=== PATIENT | female | born 1990 | race African-American/Black ===

== ENCOUNTER 2018-10-18 18:04 | Emergency (ER) | payer OTHER ==
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
[2018-10-18 18:13] VITALS: BMI 31.4
[2018-10-18 18:56] VITALS: BP 112/55; PULSE 66; TEMP 97.5
== END 2018-10-18 20:10 | disposition home or self-care (01) ==
LOC: JER 18:04
DX: O26.892 Other specified pregnancy related conditions, second trimester (principal); Z04.1 Encounter for examination and observation following transport accident; Z3A.21 21 weeks gestation of pregnancy
CPT/HCPCS: 76801-TC; 99281-25

== ENCOUNTER 2019-03-03 09:05 | Inpatient (IN) | payer OTHER ==
--- NOTE | 2019-03-03 09:40 | HP ---
Past Medical History - Primary Care Physician PCP:: Lisa Barker - Admission Chief Complaint: labor. srom History of Present Illness: 28 yo EGA 40.4 weeks EDC 02/28/19 with c/o srom and labor no DOLAN, abd pain History Source: Patient Limitations to Obtaining History: No Limitations - Past Medical History ...: 2 ...Para: 0 ...LMP: 05/23/18 ... Weeks Gestation by Dates: 40.3 ...EDC by Dates: 02/28/19 ...EDC by Sono: 02/27/19 - Past Surgical History Past Surgical History: Yes: None Hx Myomectomy: No Hx Transabdominal Cerclage: No - Smoking History Smoking history: Never smoked - Alcohol/Substance Use Hx Alcohol Use: No History of Substance Use: reports: None - Social History Usual Living Arrangement: Yes: With Spouse, With Parent Home Medications - Allergies Allergies/Adverse Reactions: Allergies Allergy/AdvReac Type Severity Reaction Status Date / Time No Known Allergies Allergy Verified 03/03/19 09:30 - Home Medications Home Medications: Ambulatory Orders Pnv No.95/Ferrous Fum/Folic AC [ Vitamin Tablet] 1 each PO DAILY Ibuprofen [Motrin -] 600 mg PO QID #28 tablet 03/03/19 Physical Exam - Maternity Constitutional: Yes: Well Nourished, No Distress - Abdominal Exam/OB Fundal Height: 40 Number of Fetuses: Single Presentation: Vertex Contractions: Yes Regularity: Regular Intensity: Moderate Monitor Mode: External Heart Rate Location: [facility] Category: I - Vaginal Exam/OB Dilatation (cm): 4-5 Effacement (%): 90 Amniotic Membrane Status: Ruptured Amniotic Fluid: Yes: Clear - Physical Exam Musculoskeletal: Yes: WNL Extremities: Yes: WNL Edema: No Psychiatric: Yes: WNL, Alert, Oriented Hemorrhage Risk Assessment - Risk Factors Risk Score: 0 Risk Level: Low Risk Problem List - Problems (1) Labor established Code(s): [id number] - Assessment/Plan IUP at 40 + weeks srom Cat 1 Plan admit to LD Anticipate vaginal deliveryu
[2019-03-03 10:22] VITALS: BMI 32.8
[2019-03-03 10:31] LABS: BASO % 0.2 % (0-2.0)
[2019-03-03 10:33] LABS: EOS % 0.1 % (0-4.5); HEMATOCRIT 38.3 % (32.4-45.2); HEMOGLOBIN 12.8 GM/dL (10.7-15.3); LYMPH % 13.6 % (8-40); MCH 27.3 pg (25.7-33.7); MCHC 33.3 g/dl (32.0-36.0); MEAN CELL VOLUME 81.9 fl (80-96); MEAN PLT VOLUME 8.5 fl (7.5-11.1); MONO % 5.9 % (3.8-10.2); NEUT % 80.2 % (42.8-82.8); PLATELET COUNT 184 K/MM3 (134-434); RBC 4.68 M/mm3 (3.60-5.2); RDW 14.5 % (11.6-15.6); WHITE BLOOD COUNT 8.9 K/mm3 (4.0-10.0)
[2019-03-03] MEDS ORDERED: ELECTROLYTE-148 SOLN 1,000 ML IV SCH (11:00)
[2019-03-03] MEDS ORDERED: PROMETHAZINE HCL 25 MG/1 ML VIAL IVPUSH ONE (11:00)
[2019-03-03] MEDS ORDERED: BUTORPHANOL TARTRATE 1 MG/ML VIAL IVPB ONE (11:00)
[2019-03-03 11:03] LABS: BLOOD UREA NITROGEN 9.2 mg/dL (7-18); CALCIUM 8.7 mg/dL (8.5-10.1); CREATININE 0.6 mg/dL (0.55-1.3); POTASSIUM 3.7 mmol/L (3.5-5.1)
[2019-03-03 11:18] LABS: INR 0.99 (0.83-1.09); PROTHROMBIN TIME (PATIENT) 11.7 SEC (9.7-13.0)
[2019-03-03] MEDS ORDERED: FENTANYL/BUPIVACAINE/NS/PF - PCEA - 50 ML DISP.SYRIN EP ONE (11:18)
[2019-03-03 11:21] LABS: ACTIVATED PTT 27.1 SECONDS (25.2-36.5)
--- NOTE | 2019-03-03 12:36 | PN ---
Ante-Partal Exam - Subjective Vital Signs: Vital Signs Temperature 97.8 F 03/03/19 12:00 Pulse Rate 101 H 03/03/19 12:00 Respiratory Rate 20 03/03/19 12:00 Blood Pressure 116/56 L 03/03/19 12:00 O2 Sat by Pulse Oximetry (%) Bleeding: No Headache: No Visual changes: No Right upper quadrant pain: No - Contractions Contractions: Yes Regularity: Irregular Monitor Mode: External - Exam during Labor Heart Rate: 135 Variability: Moderate Heart Rate Location: [facility] Category: I Monitor Decelerations: None Exam: Vaginal Dilatation (cm): 9 Effacement (%): 100 Amniotic Membrane Status: Ruptured Amniotic Fluid: Clear Presentation: Vertex Station: +1 - Intrapartum Hemorrhage Risk Risk Score: 0 Risk Level: Low Risk - Assessment/Plan Assessment/Plan: Active labor iup at 40 + week Plan Anticipate vaginal delivery
[2019-03-03] MEDS ORDERED: LIDOCAINE HCL 1% PRESERVATIVE FREE - 30ML VIAL ONE (12:41)
[2019-03-03] MEDS ORDERED: OXYTOCIN 20 UNITS in 0.9% NS 20 UNIT/1,000 ML INFUS.BAG IV ONE (12:41)
[2019-03-03] MEDS ORDERED: IBUPROFEN 600 MG TABLET (FP) PO PRN (13:17)
[2019-03-03] MEDS ORDERED: ACETAMINOPHEN 325 MG TABLET (FP) PO PRN (13:17)
[2019-03-03] MEDS ORDERED: METHYLERGONOVINE MALEATE 0.2 MG/1 ML AMP IM PRN (13:17)
[2019-03-03] MEDS ORDERED: BENZOCAINE 28 GM HEMORRHOIDAL OINTMENT PR PRN (13:17)
[2019-03-03] MEDS ORDERED: BENZOCAINE 20% 57 GM BOTTLE TP PRN (13:17)
[2019-03-03] MEDS ORDERED: BISACODYL 10 MG SUPP.RECT PR PRN (13:17)
[2019-03-03] MEDS ORDERED: WITCH HAZEL 50% (TUCKS) 40 PAD/JAR PAD TP PRN (13:17)
--- NOTE | 2019-03-03 13:17 | PN ---
Ante-Partal Exam - Subjective Subjective: Pt with urge to push Vital Signs: Vital Signs Temperature 97.8 F 03/03/19 12:00 Pulse Rate 101 H 03/03/19 12:00 Respiratory Rate 20 03/03/19 12:00 Blood Pressure 116/56 L 03/03/19 12:00 O2 Sat by Pulse Oximetry (%) Bleeding: No Headache: No Visual changes: No Right upper quadrant pain: No - Contractions Contractions: Yes Regularity: Irregular Monitor Mode: External - Exam during Labor Heart Rate: 135 Variability: Moderate Heart Rate Location: [facility] Category: I Monitor Accelerations: Present Monitor Decelerations: None Exam: Vaginal Dilatation (cm): FD Effacement (%): 100 Amniotic Membrane Status: Ruptured Amniotic Fluid: Clear Presentation: Vertex Station: +2 - Intrapartum Hemorrhage Risk Risk Score: 0 Risk Level: Low Risk - Assessment/Plan Assessment/Plan: Active labor Cat 1 Plan anticipate vaginal delivery
[2019-03-03] MEDS ORDERED: OXYTOCIN 20 UNITS in 0.9% NS 20 UNIT/1,000 ML INFUS.BAG IV SCH (14:15)
--- NOTE | 2019-03-03 14:15 | PN ---
Delivery - Delivery Vaginal Delivery: No Problems Type of Anesthesia: Local Episiotomy/Laceration: 2nd degree (2nd drgress repaired with 2 0 chromic suture shoulders delivered without complaints) EBL (cc): 300 Delivery, Single - Stages of Labor Placenta: Yes: Spontaneous - Condition of Literacy Coach/Hander In Present: No Gender: Female Position: OA - Feeding Plan Initial Plan: Elected not to breastfeed exclusively throughout hospitalization
[2019-03-04 08:32] LABS: BASO % 0.1 % (0-2.0); EOS % 0.2 % (0-4.5); HEMATOCRIT 29.2 % (32.4-45.2); HEMOGLOBIN 9.8 GM/dL (10.7-15.3); LYMPH % 15.7 % (8-40); MCH 27.6 pg (25.7-33.7); MCHC 33.4 g/dl (32.0-36.0); MEAN CELL VOLUME 82.4 fl (80-96); MEAN PLT VOLUME 8.5 fl (7.5-11.1); MONO % 8.2 % (3.8-10.2); NEUT % 75.8 % (42.8-82.8); PLATELET COUNT 178 K/MM3 (134-434); RBC 3.55 M/mm3 (3.60-5.2); RDW 14.7 % (11.6-15.6); WHITE BLOOD COUNT 13.5 K/mm3 (4.0-10.0)
--- NOTE | 2019-03-04 08:39 | PN ---
Post Note - Post Date of Delivery: 03/03/19 Post Day: 1 Vital Signs: Vital Signs - 24 hr 03/03/19 03/03/19 03/03/19 09:10 10:00 10:14 Temperature 98.3 F 98.0 F 98.4 F Pulse Rate 100 H 96 H 102 H Respiratory 20 20 20 Rate Blood Pressure 138/69 117/52 L 140/74 O2 Sat by Pulse Oximetry (%) 03/03/19 03/03/19 03/03/19 11:00 12:00 14:15 Temperature 98.2 F 97.8 F 98.4 F Pulse Rate 105 H 101 H 105 H Respiratory 20 20 20 Rate Blood Pressure 109/64 116/56 L 118/74 O2 Sat by Pulse 99 Oximetry (%) 03/03/19 03/03/19 03/03/19 14:30 14:45 15:00 Temperature Pulse Rate 100 H 103 H 98 H Respiratory 20 20 20 Rate Blood Pressure 130/74 134/79 120/76 O2 Sat by Pulse 99 98 99 Oximetry (%) 03/03/19 03/03/19 03/03/19 16:52 17:15 22:00 Temperature 98.1 F 98.1 F 99.1 F Pulse Rate 93 H 107 H 109 H Respiratory 20 20 18 Rate Blood Pressure 130/86 121/65 129/77 O2 Sat by Pulse Oximetry (%) 03/04/19 03/04/19 03/04/19 02:00 06:00 07:32 Temperature 98.7 F 98.5 F 98.4 F Pulse Rate 104 H 91 H 108 H Respiratory 18 18 20 Rate Blood Pressure 116/69 116/77 119/74 O2 Sat by Pulse Oximetry (%) Labs: Laboratory Results - last 24 hr 03/03/19 03/03/19 03/03/19 09:38 09:55 09:55 WBC 8.9 RBC 4.68 Hgb 12.8 Hct 38.3 MCV 81.9 MCH 27.3 MCHC 33.3 RDW 14.5 Plt Count 184 MPV 8.5 Absolute Neuts (auto) 7.1 Neutrophils % 80.2 Lymphocytes % 13.6 Monocytes % 5.9 Eosinophils % 0.1 Basophils % 0.2 Nucleated RBC % 0 PT with INR 11.70 INR 0.99 PTT (Actin FS) 27.1 Sodium 138 Potassium 3.7 Chloride 105 Carbon Dioxide 21 Anion Gap 12 BUN 9.2 Creatinine 0.6 Est GFR (CKD-EPI)AfAm 144.78 Est GFR (CKD-EPI)NonAf 124.92 Random Glucose 94 Calcium 8.7 RPR Titer Blood Type Antibody Screen 03/03/19 03/03/19 03/03/19 09:55 09:55 15:30 WBC RBC Hgb Hct MCV MCH MCHC RDW Plt Count MPV Absolute Neuts (auto) Neutrophils % Lymphocytes % Monocytes % Eosinophils % Basophils % Nucleated RBC % PT with INR INR PTT (Actin FS) Sodium Potassium Chloride Carbon Dioxide Anion Gap BUN Creatinine Est GFR (CKD-EPI)AfAm Est GFR (CKD-EPI)NonAf Random Glucose Calcium RPR Titer Nonreactive Blood Type O POSITIVE O POSITIVE Antibody Screen Negative - Subjective Subjective: No Complaints - Objective Afebrile: Yes Breast: Not engorged Abdomen: Soft Uterus: Fundus firm Vagina: Scant lochia Extremities: Non-tender - Assessment/Plan (1) Labor established Assessment: S/P Normal Plan: Routine Care
[2019-03-04] MEDS ORDERED: FLU VACC QS2019-20(6MOS UP)/PF 60 MCG/0.5 ML SYRINGE IM ONE (09:15)
[2019-03-04] MEDS ORDERED: DIPHTH,PERTUSS(ACELL),TET 0.5 ML DISP.SYRIN IM ONE (10:00)
[2019-03-04] MEDS ORDERED: FLU VACCINE QUAD 60 MCG/0.5 ML (MDV 19-20) IM ONE (10:00)
--- NOTE | 2019-03-05 05:53 | DS ---
Physical Exam-STRENGTH AND CONDITIONING COACH Vital Signs: Vital Signs Temperature 98.4 F 03/04/19 22:00 Pulse Rate 104 H 03/04/19 22:00 Respiratory Rate 18 03/04/19 22:00 Blood Pressure 127/71 03/04/19 22:00 O2 Sat by Pulse Oximetry (%) 99 03/03/19 15:00 Constitutional: Yes: Well Nourished, No Distress Gastrointestinal: Yes: WNL, Soft ....Post : Yes: Uterus firm, Uterus non-tender Breast(s): Yes: WNL Musculoskeletal: Yes: WNL Extremities: Yes: WNL Edema: No Neurological: Yes: WNL, Alert, Oriented Labs: CBC, BMP 03/04/19 07:10 03/03/19 09:38 Delivery - Delivery Vaginal Delivery: No Problems Type of Anesthesia: None Episiotomy/Laceration: 2nd degree EBL (cc): 350 Delivery, Single - Stages of Labor Date 1st Stage Initiatied: 03/03/19 Time 1st Stage Initiated: 04:30 Date 2nd Stage Initiated: 03/03/19 Time 2nd Stage Initiated: 13:15 Date of Delivery: 03/03/19 Time of Delivery: 13:55 Time Placenta Delivered: 14:00 Placenta: Yes: Spontaneous - Condition of Infant Industrial Hygiene Manager/R D Engineer Present: No Gender: Female Weight: 7 lb 3 oz Position: OA Total Hours ROM (Hrs/Mins): 4/45 - 1 Minute Total Score: 9 5 Minutes Total Score: 10 - [place] Feeding Plan Initial Plan: Elected not to breastfeed exclusively throughout hospitalization Discharge Summary Problems reviewed: Yes Reason For Visit: LABOR ADMISSION Current Active Problems Labor established (Acute) Procedures: Principal: Normal vaginal delivery Hospital Course: Unremarkable Condition: Good - Instructions Diet, Activity, Other Instructions: Physical activity Resume your normal everyday activity as tolerated no heavy lifting or exercise until seen by your surgeon. You may walk unlimited karthik of and climb stairs. You may resume driving the car when you feel safe and comfortable behind the wheel. No sexual activity as instructed. Wound care If you have a bandage, leave it on, and keep dry for 48-72 hours. After that time discard the outer bandage. If they are tapes on the skin under the out of bandage leave them in place. They will peel off in the next 7 to 10 days. Do Not Peel them off. You may shower the day after surgery. If there are tapes present on the skin, you may shower over them. Diet There are no dietary restrictions. Eat healthy, high-fiber foods. Drink 6 to 8 glasses of liquid each day. This will assist in keeping your bowels are regular. Pain management You may take Tylenol or acetaminophen or Ibuprofen (for example, Motrin, Advil etc.) from my pain prescription medication is ordered should be taken as prescribed for moderate to severe pain. Call MD for any of the following: Severe pain not relieved by medication Fever of 101 or higher Excessive bleeding or drainage on dressing Inability to urinate Referrals: Lisa Barker MD [Staff Physician] - Disposition: HOME - Home Medications Comprehensive Discharge Medication List: Ambulatory Orders Pnv No.95/Ferrous Fum/Folic AC [ Vitamin Tablet] 1 each PO DAILY Ibuprofen [Motrin -] 600 mg PO QID #28 tablet 03/03/19
[2019-03-05 09:42] VITALS: BP 109/59; PULSE 87; TEMP 98.3
== END 2019-03-05 12:20 | disposition home or self-care (01) | DRG 807 ==
LOC: JDEL 09:05 → JLDR 09:45 → J3W 15:30
PROVIDERS: ADMIT Obstetrics & Gynecology; ATTEND Obstetrics & Gynecology
PROC: 10E0XZZ Delivery of Products of Conception, External Approach (ICD-10-PCS; principal; 2019-03-03)
PROC: 0KQM0ZZ Repair Perineum Muscle, Open Approach (ICD-10-PCS; 2019-03-03)
PROC: 0W8NXZZ Division of Female Perineum, External Approach (ICD-10-PCS; 2019-03-03)
DX: O70.1 Second degree perineal laceration during delivery (principal); Z3A.40 40 weeks gestation of pregnancy; Z37.0 Single live birth
CPT/HCPCS: 36415; 59409; 80048; 85025; 85610; 85730; 86593; 86850; 86900; 86901; 90715